=== PATIENT | female | born 2000 | race Caucasian/White ===

== ENCOUNTER 2021-08-14 00:46 | Observation (INO) | payer OTHER ==
[~2021-08-14] VITALS: Ht 160 cm; Wt 81.6 kg
[~2021-08-14 00:46] MED LIST: BENTYL 20MG TAB20 MG PO; DOXYCYCLINE MO100 MG PO; FLAGYL500 MG PO; KEFLEX CAP 500500 MG PO; LODINE CAP 300300 MG PO; ZOFRAN ODT 4 MG4 MG PO
[2021-08-14 01:55] LABS: HEMOGLOBIN 12.8 gm/dl (12.3-15.3); RED BLOOD COUNT 4.3 M/UL (4.00-5.10); WHITE BLOOD COUNT 7.7 K/UL (4.5-11.0)
[2021-08-14 02:16] LABS: BUN/CREATININE RATIO 16 (0-10)
[2021-08-14] MEDS ORDERED: BENTYL 20MG TAB20 MG PO (02:41)
[2021-08-14] MEDS ORDERED: ZOFRAN ODT 4 MG4 MG PO (02:41)
[2021-08-14] MEDS ORDERED: HYDROXYZINE HCL50 MG PO (10:16)
[2021-08-14] MEDS ORDERED: TYLENOL EXTRA500 MG PO (10:17)
[2021-08-14] MEDS ORDERED: NAPROXEN500 MG PO (10:17)
[2021-08-14] MEDS ORDERED: PHENTERMINE H37.5 M1 PO (10:17)
[2021-08-14] MEDS ORDERED: SYMBICORT 80-10.2 GM INH (10:18)
[2021-08-14] MEDS ORDERED: PROAIR HFA8.5 GM INH (10:19)
[2021-08-14 16:09] LABS: HEMOGLOBIN 12.7 gm/dl (12.3-15.3)
[2021-08-15] MEDS ORDERED: IBUPROFEN600 MG PO (13:27)
[2021-08-15] MEDS ORDERED: HYDROCODONE-AC1 EACH PO (13:27)
[2021-08-16] MEDS ORDERED: ZOFRAN ODT 4 MG4 MG SL (18:50)
[2021-08-16] MEDS ORDERED: GAS RELIEF80 MG PO (18:50)
== END 2021-08-15 18:24 | disposition home or self-care (01) ==
LOC: ER1 00:46 → CDU 08:50 → CCU 08:50
PROVIDERS: Family Medicine; Obstetrics & Gynecology; ADMIT Obstetrics & Gynecology
PROC: 0UB14ZZ Excision of Left Ovary, Percutaneous Endoscopic Approach (ICD-10-PCS; principal; 2021-08-15 08:00)
DX: N83.12 Corpus luteum cyst of left ovary (principal); Z20.822 Contact with and (suspected) exposure to COVID-19; J45.909 Unspecified asthma, uncomplicated; F17.290 Nicotine dependence, other tobacco product, uncomplicated; K59.00 Constipation, unspecified; K76.0 Fatty (change of) liver, not elsewhere classified; K21.9 Gastro-esophageal reflux disease without esophagitis; Z79.899 Other long term (current) drug therapy; Z88.0 Allergy status to penicillin
CPT/HCPCS: 76830; 80053; 81001; 84702; 84703; 85014; 85018; 85025; 87086; 96372; 96374; 96375; 96376; 99285; C1769; G0378; J0500; J1100; J1170; J1885; J2001; J2250; J2270; J2405; J2704; J3010; J7030; J7120; Q9967; U0002

== ENCOUNTER 2021-08-16 13:33 | Emergency (ER) | payer OTHER ==
[~2021-08-16 13:33] MED LIST changes: +HYDROCODONE-AC1 EACH PO; +HYDROXYZINE HCL50 MG PO; +IBUPROFEN600 MG PO; +NAPROXEN500 MG PO; +PHENTERMINE H37.5 M1 PO; +PROAIR HFA8.5 GM INH; +SYMBICORT 80-10.2 GM INH; +TYLENOL EXTRA500 MG PO
[2021-08-16 17:40] LABS: RED BLOOD COUNT 4.04 M/UL (4.00-5.10); WHITE BLOOD COUNT 7.5 K/UL (4.5-11.0)
[2021-08-16 18:05] LABS: BUN/CREATININE RATIO 17 (0-10)
[2021-08-16] MEDS ORDERED: GAS RELIEF80 MG PO (18:50)
[2021-08-16] MEDS ORDERED: ZOFRAN ODT 4 MG4 MG SL (18:50)
== END 2021-08-16 19:49 | disposition home or self-care (01) ==
LOC: ER1 13:33
PROVIDERS: Physician Assistant
DX: G89.18 Other acute postprocedural pain (principal); R10.9 Unspecified abdominal pain; J45.909 Unspecified asthma, uncomplicated; Z88.0 Allergy status to penicillin
CPT/HCPCS: 80053; 81001; 85025; 96372; 99284; J1885; Q9967